=== PATIENT | female | born 1960 | race Caucasian/White ===

== ENCOUNTER → 2017-01-02 | Outpatient (CLI) | payer OTHER ==
[~2017-01-02] MED LIST: NOHOMEMEDS
== END | disposition home or self-care (01) ==
LOC: CDC 10:50
DX: T84.09 Other mechanical complication of internal joint prosthesis (principal); M25.571 Pain in right ankle and joints of right foot; R94.31 Abnormal electrocardiogram [ECG] [EKG]
CPT/HCPCS: 93000